=== PATIENT | female | born 1970 | race Caucasian/White ===

== ENCOUNTER → 2016-12-24 | Day surgery (SDC) | payer OTHER ==
[~2016-12-24] VITALS: Ht 162.6 cm; Wt 86.8 kg
[2016-12-24 12:49] LABS: MCHC 33.3 g/dL (32.0-36.0); MCV 92.9 fL (78.0-100.0); MPV 10.3 fL (6.0-9.5); RBC 4.2 M/uL (4.20-5.40); RDW 12.4 % (11.5-14.0); WBC 5.8 K/uL (4.0-10.5)
[2016-12-24 13:13] LABS: ALBUMIN 3.8 g/dL (3.5-5.0); BILIRUBIN - TOTAL 0.3 mg/dL (0.1-1.0); CREATININE 0.8 mg/dL (0.5-1.0); GLOBULIN (CALCULATION) 2.8 g/dL (2.2-4.2); POTASSIUM 4.2 mmol/L (3.5-5.1); TOTAL PROTEIN 6.6 g/dL (6.4-8.3)
== END | disposition home or self-care (01) ==
LOC: FAS 09:00
PROVIDERS: Orthopaedic Surgery
DX: S83.241A Other tear of medial meniscus, current injury, right knee, initial encounter (principal); M79.4 Hypertrophy of (infrapatellar) fat pad; M25.861 Other specified joint disorders, right knee; M19.90 Unspecified osteoarthritis, unspecified site; K21.9 Gastro-esophageal reflux disease without esophagitis; F41.9 Anxiety disorder, unspecified; Z90.49 Acquired absence of other specified parts of digestive tract; F17.210 Nicotine dependence, cigarettes, uncomplicated; Z88.1 Allergy status to other antibiotic agents
CPT/HCPCS: 36415; 80053; 84703; J1100; J1170; J1885; J2405; J2704; J3010

== ENCOUNTER 2020-09-04 14:17 | Emergency (ER) | payer OTHER ==
[~2020-09-04 14:17] MED LIST: ACETAMINOPHEN500 M1 PO; ALLERGY RELIEF OTC; DESYREL50 MG PO; DICLOFENAC SODI75 MG PO; MELATONIN5 M5 PO; OMEPRAZOLE40 MG PO; PHENERGAN25 M1 PO; VITAMIN B-12500 MCG PO; VITAMIN D350000 UNIT PO
[2020-09-04] MEDS ORDERED: DOXYCYCLINE MO100 MG PO (16:38)
[2020-09-04] MEDS ORDERED: NORCO 5-325 TA1 EACH PO (16:38)
== END 2020-09-04 17:00 | disposition home or self-care (01) ==
LOC: FER 14:17
DX: S62.630B Displaced fracture of distal phalanx of right index finger, initial encounter for open fracture (principal); Z23 Encounter for immunization; F17.210 Nicotine dependence, cigarettes, uncomplicated; W27.0XXA Contact with workbench tool, initial encounter
CPT/HCPCS: 73140; 90389; 90471; 90714

== ENCOUNTER 2022-01-25 23:24 | Emergency (ER) | payer OTHER ==
[~2022-01-25 23:24] MED LIST changes: +DOXYCYCLINE MO100 MG PO; +NORCO 5-325 TA1 EACH PO
[2022-01-26 00:47] LABS: BASOPHIL 0.8 % (0-2); EOSINOPHIL 2.2 % (0-5); HCT 42.1 % (37.0-47.0); HGB 13.7 g/dl (12.5-16.0); LYMPHOCYTE 31.2 % (15-48); MCH 30.6 pg (25.0-31.0); MCHC 32.5 g/dL (32.0-36.0); MCV 94.2 fL (78.0-100.0); MONOCYTE 8.9 % (0-12); MPV 10.5 fL (6.0-9.5); NEUTROPHIL 56.2 % (41-80); NRBC 0; PLT 266 K/uL (150-400); RBC 4.47 M/uL (4.20-5.40); RDW 12.2 % (11.5-14.0); WBC 7.7 K/uL (4.0-10.5)
[2022-01-26 00:51] LABS: INR 0.95 (0.9-1.2); PROTHROMBIN TIME 12.4 SECONDS (11.9-13.9); PTT 26.9 SECONDS (24.9-34.6)
[2022-01-26 01:03] LABS: BILIRUBIN NEGATIVE (NEGATIVE); BLOOD NEGATIVE Ery/uL (NEGATIVE); CLARITY CLEAR (CLEAR); COLOR YELLOW (YELLOW); GLUCOSE (U) NORMAL (NORMAL); LEUKOCYTES NEGATIVE Leu/uL (NEGATIVE); NITRITE NEGATIVE (NEGATIVE); PROTEIN NEGATIVE (NEGATIVE); SPECIFIC GRAVITY <=1.005 (1.001-1.030); UROBILINOGEN 0.2 mg/dL (0.2-1.0)
[2022-01-26 01:07] LABS: ECSTASY (MDMA) NEGATIVE (NEGATIVE); MARIJUANA (THC) NEGATIVE (NEGATIVE); METHADONE NEGATIVE (NEGATIVE); OPIATES NEGATIVE (NEGATIVE)
[2022-01-26 01:08] LABS: AMPHETAMINES NEGATIVE (NEGATIVE); BARBITURATES NEGATIVE (NEGATIVE); OXYCODONE NEGATIVE (NEGATIVE)
[2022-01-26 01:15] LABS: ALKALINE PHOSHATASE 73 U/L (46-116); ALT 30 U/L (14-59); AST 23 U/L (15-37); BILIRUBIN - TOTAL 0.3 mg/dL (0.2-1.0); BUN 11 mg/dL (7-18); BUN/CREAT RATIO (CALC) 13.8 RATIO; CHLORIDE 100 mmol/L (98-107); CO2 (BICARBONATE) 30 mmol/L (21-32); GLOBULIN (CALCULATION) 3.9 g/dL; GLUCOSE 99 mg/dL (74-106); LIPASE 70 U/L (73-393); POTASSIUM 3.5 mmol/L (3.5-5.1); TOTAL PROTEIN 7.9 g/dL (6.4-8.2)
[2022-01-26 01:16] LABS: C-REACTIVE PROTEIN < 0.20 mg/dL (<=0.90)
[2022-01-26 01:21] LABS: IRON % SATURATION 30.7 %SAT (20-50)
[2022-01-26] MEDS ORDERED: NORCO 5-325 TA1 EACH PO (04:24)
== END 2022-01-26 04:53 | disposition home or self-care (01) ==
LOC: FER 23:24
PROVIDERS: Emergency Medicine
DX: S16.1XXA Strain of muscle, fascia and tendon at neck level, initial encounter (principal); S20.213A Contusion of bilateral front wall of thorax, initial encounter; S30.1XXA Contusion of abdominal wall, initial encounter; S40.012A Contusion of left shoulder, initial encounter; S40.011A Contusion of right shoulder, initial encounter; S50.12XA Contusion of left forearm, initial encounter; S50.11XA Contusion of right forearm, initial encounter; F17.210 Nicotine dependence, cigarettes, uncomplicated; Z28.310 Unvaccinated for COVID-19; Z88.1 Allergy status to other antibiotic agents; V49.40XA Driver injured in collision with unspecified motor vehicles in traffic accident, initial encounter
CPT/HCPCS: 36415; 70450; 71260; 72125; 73060; 73090; 80053; 80305; 81003; 83540; 83550; 83690; 84439; 85025; 85610; 85730; 86140; 93005; G0480; J1170; J2405; J7030; Q9967